=== PATIENT | male | born 1965 | race Caucasian/White ===

== ENCOUNTER 2017-04-09 12:15 | Emergency (ER) | payer MEDICAID ==
[~2017-04-09] VITALS: Ht 170.2 cm; Wt 67.1 kg
[2017-04-09 12:31] VITALS: Ht 170.2 cm; Wt 67.1 kg
[2017-04-09 15:00] VITALS: BP 109/69
== END 2017-04-09 15:00 | disposition home or self-care (01) ==
LOC: ED 12:15
DX: J20.9 Acute bronchitis, unspecified (principal)